=== PATIENT | male | born 1965 | race Two or more races ===

== ENCOUNTER 2025-01-03 00:26 | Emergency (ER) | payer SELFPAY ==
[~2025-01-03] VITALS: Ht 160 cm; Wt 85.7 kg
[2025-01-03 00:32] VITALS: BP 144/87; TEMP 98; O2SAT 97
[2025-01-03] MEDS ORDERED: PREG100C PO (00:53)
[2025-01-03] MEDS ORDERED: PRED50TA PO (00:53)
[2025-01-03] MEDS ORDERED: VALA100026 PO (00:53)
== END 2025-01-03 01:00 | disposition home or self-care (01) ==
LOC: ER 00:43
DX: G51.0 Bell's palsy (principal); I10 Essential (primary) hypertension; Z79.52 Long term (current) use of systemic steroids; Z79.624 Long term (current) use of inhibitors of nucleotide synthesis; Z79.899 Other long term (current) drug therapy; Z86.69 Personal history of other diseases of the nervous system and sense organs